=== PATIENT | male | born 1950 | race Caucasian/White ===

== ENCOUNTER 2018-01-30 06:50 | Day surgery (SDC) | payer MEDICARE, BC, SELFPAY ==
[2018-01-30 07:26] VITALS: BP 132/71; PULSE 85; RESP 16; TEMP 37.1; O2SAT 95; BMI 33.4
[2018-01-30 07:45] LABS: Bedside Glucose 159 mg/dL (70-110)
[2018-01-30 08:44] VITALS: BP 109/67; BP 132/71; PULSE 83; RESP 18; TEMP 37.4; O2SAT 96
[2018-01-30 08:50] VITALS: BP 110/71; BP 132/71; PULSE 81; RESP 16; O2SAT 95
[2018-01-30 08:55] VITALS: BP 108/84; BP 132/71; PULSE 74; RESP 16; O2SAT 94
[2018-01-30 09:00] VITALS: BP 130/73; BP 132/71; PULSE 77; RESP 16; TEMP 37; O2SAT 96
[2018-01-30 09:12] VITALS: BP 132/71
--- NOTE | 2018-01-30 14:04 | PCM.OPRPT ---
Report of Operation Date of Procedure: 01/30/18 Pre-Operative Diagnosis: Screening for colon cancer, history of colon cancer status post right hemicolectomy in 2009 Post-Operative Diagnosis: Mild diverticulosis of the sigmoid colon Surgery/Procedure Performed:: Colonoscopy Type of Anesthesia:: MAC Anesthesiologist: Christopher Begum Specimen's removed: None Estimated Blood Loss (mL): None Description of Procedure: Procedure: Colonoscopy After reviewing the risks benefits, the patient was deemed in satisfactory condition to undergo procedure. After obtaining informed consent, the scope was passed under direct visualization. Throughout the procedure, the patient's blood pressure pulse and position saturations were monitored continuously anesthesia. The colonoscope was introduced through the anus and advanced to the ileocolic (transverse colon) anastomosis. The colonoscopy was performed without difficulty. The patient tolerated procedure well. Quality of bowel prep was good. Findings: The perianal and digital rectal exam were normal. Mild sigmoid diverticulosis was noted. Otherwise the colon (entire examined portion) appeared normal and the ileocolic anastomosis was widely patent. Retroflexed view of the distal rectum and anal verge was normal and showed no anal or rectal abnormalities Impression: 1. The entire colon is normal to the ileocolic anastomosis which is widely patent 2. The distal rectal and anal verge were normal on retroflexed view. Recommendations: Repeat colonoscopy in 5 years for screening purposes history of colon cancer. - Complications none
== END 2018-01-30 09:25 | disposition home or self-care (01) ==
LOC: EN 06:51 → AC 06:52
PROVIDERS: Family Provider Family Medicine; PCP Family Medicine; Visit Provider Surgery
PROC: 0DJD8ZZ Inspection of Lower Intestinal Tract, Via Natural or Artificial Opening Endoscopic (ICD-10-PCS; CPT 45378; principal; 2018-01-30 07:55)
DX: Z12.11 Encounter for screening for malignant neoplasm of colon (principal); K57.30 Diverticulosis of large intestine without perforation or abscess without bleeding; K63.89 Other specified diseases of intestine; Z85.038 Personal history of other malignant neoplasm of large intestine; F41.9 Anxiety disorder, unspecified; E11.40 Type 2 diabetes mellitus with diabetic neuropathy, unspecified; I10 Essential (primary) hypertension; E78.00 Pure hypercholesterolemia, unspecified; E78.5 Hyperlipidemia, unspecified; G47.30 Sleep apnea, unspecified; Z85.828 Personal history of other malignant neoplasm of skin; Z90.49 Acquired absence of other specified parts of digestive tract; Z79.82 Long term (current) use of aspirin; Z79.84 Long term (current) use of oral hypoglycemic drugs; Z79.4 Long term (current) use of insulin; Z79.899 Other long term (current) drug therapy; F17.200 Nicotine dependence, unspecified, uncomplicated
CPT/HCPCS: G0105; 82962; J7120

== ENCOUNTER → 2018-09-26 07:38 | Outpatient (CLI) | payer MEDICARE, BC, SELFPAY ==
[2018-09-26 10:49] LABS: AST(SGOT) 15 U/L (15-37); Alanine Aminotransfer ALT/SGPT 33 U/L (16-61); Albumin, Serum 3.5 g/dL (3.2-5.0); Alkaline Phosphatase 36 U/L (45-117); Anion Gap 9 (5-15); BUN 18 mg/dL (7-18); BUN/Creat Ratio 14.2 RATIO (10-20); Calcium,Total 8.4 mg/dL (8.5-10.1); Chloride 102 mmol/L (98-107); Cholesterol 209 mg/dL (200); Creatinine, Serum 1.27 mg/dL (0.70-1.30); EST Glomerular Filtration Rate 60 mL/min (>60); Est Glom Filt Rate - Afr Amer 72 mL/min (>60); Globulin 3.5 g/dL (2.2-4.2); Glucose 278 mg/dL (74-106); High Density Lipoprotein 24 mg/dL; Potassium 3.9 mmol/L (3.5-5.1); Sodium Level 137 mmol/L (136-145); Triglycerides 1710 mg/dL
== END ==
PROVIDERS: Family Provider Family Medicine; PCP Family Medicine; Referring Provider Family Medicine; Visit Provider Family Medicine
DX: E11.9 Type 2 diabetes mellitus without complications (principal); I10 Essential (primary) hypertension
CPT/HCPCS: 36415; 80053; 80061

== ENCOUNTER → 2019-01-03 08:08 | Outpatient (CLI) | payer MEDICARE, BC, SELFPAY ==
[2019-01-03 10:43] LABS: Anion Gap 6 (5-15); BUN 14 mg/dL (7-18); BUN/Creat Ratio 11.2 RATIO (10-20); Calcium,Total 9.5 mg/dL (8.5-10.1); Chloride 106 mmol/L (98-107); Cholesterol 177 mg/dL (200); Creatinine, Serum 1.25 mg/dL (0.70-1.30); EST Glomerular Filtration Rate 61 mL/min (>60); Est Glom Filt Rate - Afr Amer 74 mL/min (>60); Glucose 145 mg/dL (74-106); High Density Lipoprotein 34 mg/dL; Potassium 3.7 mmol/L (3.5-5.1); Sodium Level 140 mmol/L (136-145); Triglycerides 462 mg/dL
== END ==
PROVIDERS: Family Provider Family Medicine; PCP Family Medicine; Referring Provider Family Medicine; Visit Provider Family Medicine
DX: E11.9 Type 2 diabetes mellitus without complications (principal)
CPT/HCPCS: 36415; 80048; 80061